=== PATIENT | female | born 1985 | race Caucasian/White ===

== ENCOUNTER 2019-04-17 12:11 | Outpatient (CLI) | payer MEDICARE, MEDICAID ==
[2019-04-17 12:22] LABS: Bilirubin Negative (Negative); Blood, Urine Moderate (Negative); Glucose, Urine (Dipstick) Negative (Negative); Leukocyte Negative (Negative); Nitrite Negative (Negative); Protein, Urine (Dipstick) Negative (Neg-Trace); Specific Gravity, Urine 1.025 (1.005-1.030); Urobilinogen 0.2 mg/dL (0.2-1.0); pH, Urine 7.5 (5.0-9.0)
[2019-04-17 12:27] LABS: Clarity SL HAZY (Clear)
[2019-04-17 12:30] LABS: Crystals/HPF 3+ AMORPH URATES HPF (Negative); WBC/HPF 0-3 HPF (0-3)
== END 2019-04-17 12:12 | disposition home or self-care (01) ==
LOC: NAV LABSP 12:11
PROVIDERS: ATTEND Family Medicine
DX: N39.0 Urinary tract infection, site not specified (principal)
CPT/HCPCS: 81003; 81015; 87077; 87086; 87186

== ENCOUNTER 2019-09-17 14:20 | Outpatient (CLI) | payer MEDICARE, MEDICAID ==
[2019-09-17 15:15] LABS: ALT (SGPT) 59 U/L (8-55); AST (SGOT) 49 U/L (5-34); Albumin 2.6 g/dL (3.5-5.0); Alkaline Phosphatase 366 U/L (40-110); Anion Gap 12 mmol/L (10-20); BUN (Urea Nitrogen) 17 mg/dL (7.0-18.7); Bilirubin, Direct 0.4 mg/dL (0.1-0.3); Bilirubin, Total 0.5 mg/dL (0.2-1.2); Calc. Creatinine Clearance 0 mL/min (70-130); Calcium 9.1 mg/dL (7.8-10.44); Carbon Dioxide 24 mmol/L (22-29); Chloride 105 mmol/L (98-107); Cholesterol 92 mg/dl (< 200 Desired); Estimated GFR-MDRD Greater than 90; Globulin 3.6 g/dL (2.4-3.5); Glucose 111 mg/dL (70-105); HDL Cholesterol 23 mg/dL (>60 Neg Risk); LDL Cholesterol, Calculated 59 mg/dL; Magnesium 1.9 mg/dL (1.6-2.6); Phosphorus 4.3 mg/dL (2.3-4.7); Potassium 4.4 mmol/L (3.5-5.1); Protein, Total 6.2 g/dL (6.0-8.3); Sodium 137 mmol/L (136-145); Triglycerides 51 mg/dL (Less than 150)
[2019-09-17 15:24] LABS: Bilirubin Negative (Negative); Blood, Urine Large (Negative); Clarity Clear (Clear); Glucose, Urine (Dipstick) Negative (Negative); Leukocyte Trace (Negative); Nitrite Positive (Negative); Protein, Urine (Dipstick) 30 mg/dL (Neg-Trace); Urobilinogen 0.2 mg/dL (Less than 2)
[2019-09-17 15:56] LABS: Bacteria/HPF Rare-Few HPF (None Seen); Squamous Epithelial 0-3 HPF (0-3); WBC/HPF 21-50 HPF (0-3)
[2019-09-17 17:09] LABS: #Eosinphils 0.1 thou/uL (0.0-0.7); #Lymphocytes 1.9 thou/uL (1.20-3.40); #Monocytes 0.4 thou/uL (0.11-0.59); #Neutrophils 3.5 thou/uL (1.40-6.50); %Basophils 0.8 % (0.0-1.0); %Eosinophils 1.3 % (0.0-10.0); %Lymphocytes 31.7 % (21.0-51.0); %Monocytes 6.4 % (0.0-10.0); %Neutrophils 59.8 % (42.0-75.0); Hemoglobin 8.8 g/dL (12.0-16.0); Mean Corpuscular HGB CONC 31.7 g/dL (32.0-36.0); Mean Corpuscular Hemoglobin 28.5 pg (27.0-31.0); Mean Corpuscular Volume 89.8 fL (78.0-98.0); Mean Platelet Volume 6.9 fL (7.4-10.4); Platelet Count 221 thou/uL (130-400); RBC Distribution Width 19.1 % (11.5-14.5); Red Blood Cell (RBC) Count 3.09 mill/uL (4.20-5.40); White Blood Cell (WBC) Count 5.8 thou/uL (4.8-10.8)
[2019-09-17 19:46] LABS: Anisocytosis MODERATE=16-30 cells (100X) (0-5/hpf); MDiff Complete? YES; Microcytosis SLIGHT = 6-15 cells (100X) (0-5/hpf)
[2019-09-18 14:45] LABS: Reference Lab Name LABCORP
[2019-09-18 14:46] LABS: Ref Lab Test Ordered CARN FREE AND TOTAL; Reference Lab Name LABCORP
[2019-09-18 14:47] LABS: Ref Lab Test Ordered SELENIUN WB
[2019-09-18 14:50] LABS: Ref Lab Test Ordered MANGANESE WB; Reference Lab Name LABCORP
== END 2019-09-17 14:21 | disposition home or self-care (01) ==
LOC: NAV LABSP 14:20
PROVIDERS: ATTEND Family Medicine
DX: Z76.0 Encounter for issue of repeat prescription (principal); K31.84 Gastroparesis; N39.0 Urinary tract infection, site not specified; F84.2 Rett's syndrome; E46 Unspecified protein-calorie malnutrition; R63.3 Feeding difficulties; Z79.899 Other long term (current) drug therapy
CPT/HCPCS: 80053; 80061; 81003; 81015; 82248; 82330; 82525; 82652; 83735; 84100; 84425; 84630; 85025; 87077; 87086; 87186

== ENCOUNTER 2020-04-26 14:07 | Outpatient (CLI) | payer MEDICARE, MEDICAID ==
[2020-04-26 14:53] LABS: #Lymphocytes 1.6 thou/uL (1.20-3.40); #Monocytes 0.3 thou/uL (0.11-0.59); #Neutrophils 3.4 thou/uL (1.40-6.50); %Basophils 0.9 % (0.0-1.0); %Eosinophils 0.5 % (0.0-10.0); %Lymphocytes 29.9 % (21.0-51.0); %Monocytes 5.8 % (0.0-10.0); Hemoglobin 9.5 g/dL (12.0-16.0); Mean Corpuscular HGB CONC 31.4 g/dL (32.0-36.0); Mean Corpuscular Hemoglobin 30.4 pg (27.0-31.0); Mean Corpuscular Volume 96.7 fL (78.0-98.0); Mean Platelet Volume 6.9 fL (7.4-10.4); Platelet Count 187 thou/uL (130-400); Red Blood Cell (RBC) Count 3.11 mill/uL (4.20-5.40); White Blood Cell (WBC) Count 5.3 thou/uL (4.8-10.8)
[2020-04-26 14:56] LABS: ALT (SGPT) 46 U/L (8-55); AST (SGOT) 44 U/L (5-34); Albumin 2.7 g/dL (3.5-5.0); Alkaline Phosphatase 382 U/L (40-110); Anion Gap 12 mmol/L (10-20); BUN (Urea Nitrogen) 14 mg/dL (7.0-18.7); Bilirubin, Direct 0.3 mg/dL (0.1-0.3); Bilirubin, Total 0.4 mg/dL (0.2-1.2); Calc. Creatinine Clearance 0 mL/min (70-130); Calcium 8.1 mg/dL (7.8-10.44); Carbon Dioxide 23 mmol/L (22-29); Cardiac Risk 3.4 (Less than 4.5); Chloride 100 mmol/L (98-107); Cholesterol 101 mg/dl (< 200 Desired); Estimated GFR-MDRD Greater than 90; Glucose 109 mg/dL (70-105); HDL Cholesterol 30 mg/dL (>60 Neg Risk); LDL Cholesterol, Calculated 62 mg/dL; Magnesium 1.8 mg/dL (1.6-2.6); Phosphorus 3.8 mg/dL (2.3-4.7); Potassium 4.4 mmol/L (3.5-5.1); Protein, Total 6.7 g/dL (6.0-8.3); Sodium 131 mmol/L (136-145); Triglycerides 47 mg/dL (Less than 150)
[2020-04-26 15:54] LABS: Follow-up Chemistry Comp? YES; Follow-up Hematology Comp? YES; Follow-up Result - Chemistry REPORT FAXED; Follow-up Result - Hematology REPORT FAXED
== END 2020-04-26 14:08 | disposition home or self-care (01) ==
LOC: NAV LAB 14:07
PROVIDERS: ATTEND Family Medicine
DX: Z76.0 Encounter for issue of repeat prescription (principal); Z79.899 Other long term (current) drug therapy
CPT/HCPCS: 80053; 80061; 82248; 83735; 84100; 85025

== ENCOUNTER 2020-10-29 20:34 | Outpatient (CLI) | payer MEDICARE ==
[2020-10-30 14:23] LABS: Hemoglobin 8.3 g/dL (12.0-16.0); Mean Corpuscular Hemoglobin 30.7 pg (27.0-31.0); Mean Platelet Volume 7.9 fL (7.4-10.4); Platelet Count 180 thou/uL (130-400); RBC Distribution Width 14.6 % (11.5-14.5); Vancomycin, Trough 11.5 ug/mL; White Blood Cell (WBC) Count 9.9 thou/uL (4.8-10.8)
[2020-10-30 14:27] LABS: ALT (SGPT) 88 U/L (8-55); AST (SGOT) 63 U/L (5-34); Albumin 2.5 g/dL (3.5-5.0); Alkaline Phosphatase 598 U/L (40-110); Anion Gap 14 mmol/L (10-20); BUN (Urea Nitrogen) 40 mg/dL (7.0-18.7); Bilirubin, Direct 0.5 mg/dL (0.1-0.3); Bilirubin, Total 0.7 mg/dL (0.2-1.2); Calc. Creatinine Clearance 0 mL/min (70-130); Calcium 8.6 mg/dL (7.8-10.44); Carbon Dioxide 23 mmol/L (22-29); Cardiac Risk 5.5 (Less than 4.5); Chloride 109 mmol/L (98-107); Cholesterol 133 mg/dl (< 200 Desired); Globulin 4.1 g/dL (2.4-3.5); Glucose 96 mg/dL (70-105); HDL Cholesterol 24 mg/dL (>60 Neg Risk); LDL Cholesterol, Calculated 86 mg/dL; Magnesium 1.9 mg/dL (1.6-2.6); Phosphorus 4.1 mg/dL (2.3-4.7); Protein, Total 6.6 g/dL (6.0-8.3); Sodium 142 mmol/L (136-145); Triglycerides 115 mg/dL (Less than 150)
[2020-10-30 14:43] LABS: Band 38 % (5-11); Eosinophils 1 % (0-10); Lymphocytes 24 % (21-51); MDiff Complete? YES; Monocytes 8 % (0-10); Neutrophil 27 % (42-75); Platelet Morphology Comment Appears Adequate; Polychromasia SLIGHT = 2-3 cells (100X) (0-2/hpf); Reactive Lymphocytes 2 % (0-10)
[2020-10-30 16:13] LABS: Follow-up Chemistry Comp? YES; Follow-up Result - Chemistry REPORT FAXED
== END 2020-10-29 20:35 ==
LOC: NAV LABSP 20:34
DX: Z76.0 Encounter for issue of repeat prescription (principal); Z79.899 Other long term (current) drug therapy
CPT/HCPCS: 80053; 80061; 80202; 82248; 83735; 84100; 85025